=== PATIENT | male | born 1960 | race Caucasian/White ===

== ENCOUNTER 2019-12-28 02:19 | Outpatient (CLI) | payer BC, SELFPAY ==
[2019-12-28 17:03] LABS: SARS-CoV-2 RNA PCR Negative
== END 2019-12-28 02:20 | disposition home or self-care (01) ==
LOC: ANHCOVIDDT 02:20
PROVIDERS: PCP Family Medicine; Visit Provider Internal Medicine Gastroenterology
DX: Z01.812 Encounter for preprocedural laboratory examination (principal); Z20.828 Contact with and (suspected) exposure to other viral communicable diseases
CPT/HCPCS: 87635; C9803; U0003

== ENCOUNTER 2019-12-30 00:06 | Day surgery (SDC) | payer BC, SELFPAY ==
[2019-12-20 14:25] VITALS: BMI 31.4
[2019-12-30 07:14] VITALS: BP 161/81; PULSE 70; RESP 18; TEMP 36.8; O2SAT 99; BMI 30.5
[2019-12-30] MEDS: LACTATED RINGERS 1,000 ML 150 ML IV CONT (07:21)
--- NOTE | 2019-12-30 07:57 | WPDANESEPPF ---
Anes - Initial Pre Proc Eval Procedure: Operation Date: 12/30/19 08:00 Proposed Procedures p Screening Colonoscopy - Lito Kimbrough DO Date/Time: 12/30/19 07:57 Surgeon: Lito Kimbrough DO Pre Op Diagnosis: Neoplam Screening Patient Data Age: 59 Gender: M Height: 1.83 m Weight: 102.2 kg Last Vital Signs Temp 36.8 C 12/30/19 07:14 Pulse 70 12/30/19 07:14 Resp 18 12/30/19 07:14 BP 161/81 H 12/30/19 07:14 Pulse Ox 99 12/30/19 07:14 Allergies Allergy/AdvReac Type Severity Reaction Status Date / Time omeprazole Allergy Unknown Rash Verified 12/30/19 07:12 Home Medications Medication Instructions Recorded Confirmed Type No Home Medications 12/20/19 12/30/19 History Patient hx anesthesia problems: none Family hx anesthesia problems: none [facility] Past Medical History Medical History (Updated 12/30/19 @ 07:58 by Geoffrey Carbone MD) Obesity Social History Social History Smoking status: Never smoker Second hand tobacco smoke exposure: No Alcohol intake: current Substance use type: does not use Living arrangements: with family Anes - Eval Final PreProcedure Day of Procedure 12/30/19 07:57 Patient weight: obese Heart: regular rate and rhythm Lungs: clear to auscultation and normal air movement Airway: Mallampati scale class II Neurological: alert and oriented Last oral intake: >/= 8 hours ASA classification: II Emergent: no Anesthetic plan: proceed Anesthesia type and monitoring: general GIVS Informed Consent: The patient's anesthetic plan and its attendant risks and benefits were discussed with the patient/family/POA. Questions were solicited and answers provided to the satisfaction of the patient/family/POA.
--- NOTE | 2019-12-30 08:10 | PM.IMHP ---
H&P: HPI History of Present Illness Date/Time: 12/30/19 08:10 Chief complaint: Neoplam Screening Narrative: Reason for visit colonoscopy. This very pleasant gentleman seen in consultation at request of the primary physician. Impression: Screening and surveillance colonoscopy. The patient's history adenomatous colon polyps. Diverticulosis coli. Obesity. Recommendation: Colonoscopy. History: Very pleasant gentleman has negative GI review systems. He has a history of diverticulosis coli and multiple adenomatous colon polyps. He is here for screening and surveillance. Physical examination: General: very pleasant patient in no acute distress. HEENT: Head was normocephalic sclerae is clear mouth without masses neck was supple. Heart: Rate rhythm regular without S3 or S4. Lungs: CTA. Abdomen: Soft with no guarding or rigidity. Bowel sounds were active. Neurologic: Cranial nerves 2 through 12 intact. No focal defects. No clonus. Musculoskeletal system: Revealed no joint tenderness or swelling no muscle atrophy. Extremities: Reveal no significant edema. Skin: Warm and dry with normal turgor. Mental status: intact. Patient is alert and oriented. Review of Systems Review of Systems: All systems reviewed & are unremarkable except as noted in HPI and below PMFSH Past Medical History Medical History (Updated 12/30/19 @ 08:09 by Lito Kimbrough DO) Adenomatous colon polyp Diverticula, colon Obesity Surgical History Surgical History (Updated 12/30/19 @ 08:10 by Lito Kimbrough DO) Hx of colonoscopy Social History Social History Smoking status: Never smoker Second hand tobacco smoke exposure: No Alcohol intake: current Substance use type: does not use Living arrangements: with family Meds Home Medications and Allergies Home Medications Medication Instructions Recorded Confirmed Type No Home Medications 12/20/19 12/30/19 History Allergies Allergy/AdvReac Type Severity Reaction Status Date / Time omeprazole Allergy Unknown Rash Verified 12/30/19 07:12 Vital Signs Vital Signs - 24 hr 12/30/19 07:14 Temperature 36.8 C Pulse Rate 70 Respiratory Rate 18 Blood Pressure 161/81 H Pulse Oximetry 99
[2019-12-30 08:36] VITALS: BP 103/67; PULSE 65; RESP 20; O2SAT 100
[2019-12-30 08:46] VITALS: BP 108/63; PULSE 70; RESP 18; O2SAT 99
[2019-12-30 08:56] VITALS: BP 119/82; PULSE 66; RESP 20; O2SAT 100
== END 2019-12-30 09:09 | disposition home or self-care (01) ==
PROVIDERS: PCP Family Medicine; Visit Provider Internal Medicine Gastroenterology
PROC: 0DJD8ZZ Inspection of Lower Intestinal Tract, Via Natural or Artificial Opening Endoscopic (ICD-10-PCS; CPT 45378; principal; 2019-12-30 08:00)
DX: Z12.11 Encounter for screening for malignant neoplasm of colon (principal); D12.3 Benign neoplasm of transverse colon; D12.4 Benign neoplasm of descending colon; K57.30 Diverticulosis of large intestine without perforation or abscess without bleeding; K64.8 Other hemorrhoids; E66.9 Obesity, unspecified; Z68.30 Body mass index [BMI] 30.0-30.9, adult
CPT/HCPCS: 45380; 88305; J2704; J7120

== ENCOUNTER 2021-11-21 16:01 | Outpatient (CLI) | payer BC, SELFPAY ==
--- NOTE | ~2021-11-21 | XR_ITS ---
XR cervical spine 4-5V DATE: 11/21/2021 16:23 INDICATION: Cervical radiculopathy, with pain radiating to right arm TECHNIQUE: AP, open-mouth, lateral and swimmer views COMPARISON: 12/29/2017 cervical spine FINDINGS: There is mild levoscoliosis of the cervical and upper thoracic spine. Osteopenia. C1 and C2 are normally aligned and the odontoid process is intact. No fracture or dislocation or locked facet or prevertebral soft tissue swelling. There is anterior and interbody spinal fusion at C6-7. Mild degenerative disease at C5-6. Minimal degenerative disc disease at C4-5. IMPRESSION: Mild cervicothoracic levoscoliosis Osteopenia Status post anterior and interbody spinal fusion at C6-7 Minimal degenerative disc disease at C4-5, mild degenerative disc disease at C5-6 Reviewed, dictated and finalized at location B. IMPRESSION: Mild cervicothoracic levoscoliosis Osteopenia Status post anterior and interbody spinal fusion at C6-7 Minimal degenerative disc disease at C4-5, mild degenerative disc disease at C5 -6
== END 2021-11-21 16:02 | disposition home or self-care (01) ==
PROVIDERS: PCP Family Medicine; Visit Provider Family Medicine
DX: M54.12 Radiculopathy, cervical region (principal); M85.88 Other specified disorders of bone density and structure, other site; Z98.1 Arthrodesis status; M50.322 Other cervical disc degeneration at C5-C6 level
CPT/HCPCS: 72050

== ENCOUNTER → 2023-05-23 07:52 | Outpatient (CLI) | payer BC, SELFPAY ==
--- NOTE | ~2023-05-23 | XR_ITS ---
XR chest 2V DATE: 05/23/2023 08:36 INDICATION: Cough for 3 weeks. History of hypertension. Nonsmoker. TECHNIQUE: PA and lateral views COMPARISON: None FINDINGS: Normal heart size. No hilar or mediastinal enlargement. Mild discoid atelectasis is suggested in the right posterior lung base. No pulmonary infiltrate or co nsolidation, pleural effusion or pulmonary vascular congestion or pneumothorax is detected. Status post anterior lower cervical spine surgical fusion. Degenerative spurring of the thoracic and lumbar spine. IMPRESSION: Mild discoid atelectasis at posterior right lung base; otherwise no active cardiopulmonar y disease Reviewed, dictated and finalized at location B. TIONAL SUPPORT ANALYST IMPRESSION: Mild discoid atelectasis at posterior right lung base; otherwise no active cardiopulmonary disease
== END ==
PROVIDERS: PCP Family Medicine; Visit Provider Nurse Practitioner Family
DX: R05.9 Cough, unspecified (principal); J98.11 Atelectasis
CPT/HCPCS: 71046

== ENCOUNTER 2023-06-17 02:20 | Day surgery (SDC) | payer BC, SELFPAY ==
[2023-05-22 13:19] VITALS: BMI 31.6
--- NOTE | 2023-06-13 12:54 | SUR.PREOP ---
Patient called regarding upcoming procedure. Reviewed preop instructions, appointment times, and procedure prep.
--- NOTE | 2023-06-16 14:48 | PM.HPGS ---
History of Present Illness History of Present Illness Consent: Risks, benefits, and alternatives have been discussed and questions answered. Patient agrees to proceed with procedure. Chief complaint: hx colon polyps Narrative: Immanuel Leonard is a 63 year old male Referred for colon cancer screening. In 2017 he had multiple polyps removed. He had a couple of more polyps in 2018, And again in 2019. Review of Systems Review of Systems: All systems reviewed & are unremarkable except as noted in HPI and below PMFSH Past Medical History Medical History Adenomatous colon polyp Diverticula, colon Dyslipidemia Essential (primary) hypertension Obesity Vitamin D deficiency Surgical History Surgical History H/O melanoma excision (~2021) left anterior lower leg History of fusion of cervical spine (~07/2006) C6-7 diskectomy Hx of colonoscopy Social History Social History Smoking status: Never smoker Second hand tobacco smoke exposure: No Alcohol intake: former Substance use type: does not use Lack of Transportation: No Lack of Food: Never True Current Housing: I Have Housing Concerned About Future Housing: No Difficulty Paying Gas/Electric Bills: No Difficulty Paying for Meds: No Currently Unemployed: No Education: High School Diploma/GED Difficulty w/ Childcare or Family Care: No Living arrangements: with family Additional living arrangements comments: lives with Gender identity (if verbalized by the patient): Male Sexual Orientation (if Verbalized by the Patient): Straight or Heterosexual Spiritual care concerns: No Meds Home Medications and Allergies Home Medications Medication Instructions Recorded Confirmed Type cholecalciferol (vitamin D3) 50 50 mcg PO DAILY #1 cap 07/11/22 06/17/23 Rx mcg (2,000 unit) capsule terbinafine HCl 250 mg tablet 250 mg PO DAILY 03/31/23 06/17/23 History atorvastatin 10 mg tablet (Lipitor) 10 mg PO QHS #90 tabs 04/03/23 06/17/23 Rx losartan 50 mg tablet 50 mg PO DAILY #90 tabs 05/26/23 06/17/23 Rx Allergies Allergy/AdvReac Type Severity Reaction Status Date / Time omeprazole Allergy Unknown Rash Verified 06/17/23 08:36 amlodipine AdvReac Mild pedal edema Verified 06/17/23 08:36 Exam Resp: Auscultation: clear to auscultation bilaterally Cardio: Rate: regular rate Rhythm: regular rhythm GI: GI Palp: Yes Soft to palpation and No Tenderness to palpation present (GI) Assessment and Plan Assessment and plan (1) Colon cancer screening: Code(s): Z12.11 - Encounter for screening for malignant neoplasm of colon Status: Acute Assessment and Plan: Colonoscopy with possible biopsy or polypectomy or cautery or injection of substances.
[2023-06-17 08:37] VITALS: BP 166/83; PULSE 65; RESP 18; TEMP 36.3; O2SAT 99
[2023-06-17] MEDS: LACTATED RINGERS 1,000 ML 150 ML IV CONT (08:40)
--- NOTE | 2023-06-17 08:56 | WPDANESEPPF ---
Anes - Initial Pre Proc Eval Procedure: Operation Date: 06/17/23 10:00 Proposed Procedures p Colonoscopy - Deyvi Schumacher MD Date/Time: 06/17/23 08:56 Surgeon: Deyvi Schumacher MD Pre Op Diagnosis: hx colon polyps Patient Data Age: 63 Gender: M Height: 1.83 m Weight: 105.5 kg Last Vital Signs Temp 36.3 C L 06/17/23 08:37 Pulse 65 06/17/23 08:37 Resp 18 06/17/23 08:37 BP 166/83 H 06/17/23 08:37 Pulse Ox 99 06/17/23 08:37 O2 Del Method Room Air 06/17/23 08:37 Allergies Allergy/AdvReac Type Severity Reaction Status Date / Time omeprazole Allergy Unknown Rash Verified 06/17/23 08:36 amlodipine AdvReac Mild pedal edema Verified 06/17/23 08:36 Home Medications Medication Instructions Recorded Confirmed Type cholecalciferol (vitamin D3) 50 50 mcg PO DAILY #1 cap 07/11/22 06/17/23 Rx mcg (2,000 unit) capsule terbinafine HCl 250 mg tablet 250 mg PO DAILY 03/31/23 06/17/23 History atorvastatin 10 mg tablet (Lipitor) 10 mg PO QHS #90 tabs 04/03/23 06/17/23 Rx losartan 50 mg tablet 50 mg PO DAILY #90 tabs 05/26/23 06/17/23 Rx Patient hx anesthesia problems: none Family hx anesthesia problems: none Results Review: All pre-operative results and documents have been reviewed as part of the pre-operative evaluation. [facility] [place] Past Medical History Medical History Adenomatous colon polyp Diverticula, colon Dyslipidemia Essential (primary) hypertension Obesity Vitamin D deficiency Surgical History Surgical History H/O melanoma excision (~2021) left anterior lower leg History of fusion of cervical spine (~07/2006) C6-7 diskectomy Hx of colonoscopy Social History Social History Smoking status: Never smoker Second hand tobacco smoke exposure: No Alcohol intake: former Substance use type: does not use Lack of Transportation: No Lack of Food: Never True Current Housing: I Have Housing Concerned About Future Housing: No Difficulty Paying Gas/Electric Bills: No Difficulty Paying for Meds: No Currently Unemployed: No Education: High School Diploma/GED Difficulty w/ Childcare or Family Care: No Living arrangements: with family Additional living arrangements comments: lives with Gender identity (if verbalized by the patient): Male Sexual Orientation (if Verbalized by the Patient): Straight or Heterosexual Spiritual care concerns: No Anes - Eval Final PreProcedure Day of Procedure 06/17/23 08:56 Patient weight: obese Heart: regular rate and rhythm Lungs: clear to auscultation Airway: Mallampati scale class II Neurological: alert and oriented Last oral intake: >/= 8 hours ASA classification: III Emergent: no Anesthetic plan: proceed Anesthesia type and monitoring: general GIVS and standard monitoring Results Review: All pre-operative results and documents have been reviewed as part of the pre-operative evaluation. Informed Consent: The patient's anesthetic plan and its attendant risks and benefits were discussed with the patient/family/POA. Questions were solicited and answers provided to the satisfaction of the patient/family/POA.
[2023-06-17 09:56] VITALS: BP 130/79; PULSE 67; RESP 18; O2SAT 98
[2023-06-17 10:06] VITALS: BP 120/73; PULSE 64; RESP 18; O2SAT 100
[2023-06-17 10:16] VITALS: BP 159/89; PULSE 60; RESP 18; O2SAT 99
== END 2023-06-17 10:20 | disposition home or self-care (01) ==
PROVIDERS: PCP Family Medicine; Visit Provider Internal Medicine Gastroenterology
PROC: 0DJD8ZZ Inspection of Lower Intestinal Tract, Via Natural or Artificial Opening Endoscopic (ICD-10-PCS; CPT 45378; principal; 2023-06-17 10:00)
DX: Z12.11 Encounter for screening for malignant neoplasm of colon (principal); Z86.010 Personal history of colon polyps; K57.30 Diverticulosis of large intestine without perforation or abscess without bleeding; I10 Essential (primary) hypertension; E78.5 Hyperlipidemia, unspecified; E66.9 Obesity, unspecified; Z68.31 Body mass index [BMI] 31.0-31.9, adult; E55.9 Vitamin D deficiency, unspecified
CPT/HCPCS: 45378; J2704; J7120

== ENCOUNTER 2023-09-23 08:23 | Outpatient (CLI) | payer BC, SELFPAY ==
[2023-09-23 13:35] LABS: Alanine Aminotransferase 45 U/L (6-50); Albumin Level 4.2 g/dL (3.5-5.1); Alkaline Phosphatase 86 U/L (38-126); Anion Gap 4 mmol/L (4-12); Aspartate Amino Transferase 66 U/L (17-59); Bilirubin,Total 0.8 mg/dL (0.2-1.3); Blood Urea Nitrogen 16 mg/dL (9-20); Calcium 9.8 mg/dL (8.4-10.2); Carbon Dioxide 29 mmol/L (22-30); Chloride 106 mmol/L (98-107); Cholesterol 150 mg/dL (0-200); Estimated Glomerular Filt Rate > 60; Glucose 97 mg/dL (65-110); HDL Direct 36 mg/dL; Potassium 4.9 mmol/L (3.4-5.0); Sodium 139 mmol/L (137-145); Triglycerides 171 mg/dL (<150)
[2023-09-23 13:46] LABS: LDL Cholesterol Direct 93 mg/dL
== END 2023-09-23 08:24 | disposition home or self-care (01) ==
LOC: ANHGOSHLAB 08:24
PROVIDERS: PCP Family Medicine; Visit Provider Student in an Organized Health Care Education/Training Program
DX: E78.5 Hyperlipidemia, unspecified (principal)
CPT/HCPCS: 36415; 80053; 80061

== ENCOUNTER 2023-10-16 11:40 | Emergency (ER) | payer BC, SELFPAY ==
--- NOTE | ~2023-10-16 | CT_ITS ---
EXAMINATION: CT cervical spine wo con DATE: 10/16/2023 13:42 INDICATION: 12 foot fall with head injury TECHNIQUE: Computed tomography (CT) of the cervical spine was performed without intravenous contrast. Axial dose Ez The dose-length product was 630.82 mGy-cm. COMPARISON: Radiographs dated 11/21/2021 FINDINGS: Minimal cervicothoracic levocurvature. Sagittal alignment is normal. C6-C7 anterior spinal fusion wit h anterior plate and screw fixation. Vertebral body heights are normal. No fracture. Mild disc height loss at C5-C6. Disc bulges resulting in mild central canal stenosis at C4-C5, C5-C6 and C7-T1. There is multilevel mild bilateral cervical facet osteoarthritis. There is moderate bilateral uncovertebra l osteoarthritis at C5-C6 with mild uncovertebral osteoarthritis throughout the remainder of the cerv ical spine. This contributes to multilevel bilateral minimal to mild neural foraminal stenosis. Visua lized apices of the lungs are clear. Small amount of atherosclerotic calcification is at the bilatera l carotid bulbs. Cervical soft tissues are otherwise unremarkable. IMPRESSION: 1. Mild cervical spondylosis with change of prior instrumented C5-C6 anterior spinal fusion. No acute osseous abnormality. Reviewed, dictated and finalized at location B. IMPRESSION: 1. Mild cervical spondylosis with change of prior instrumented C5-C6 anterior s hakan fusion. No acute osseous abnormality.
--- NOTE | ~2023-10-16 | CT_ITS ---
EXAMINATION: CT chst ab pel thor lum w DATE: 10/16/2023 13:42 INDICATION: 12 foot fall with head injury TECHNIQUE: Computed tomography (CT) of the chest, abdomen, pelvis as well as of the thoracic and lumb ar spine was performed with 100 mL Omnipaque-350 intravenous contrast. Automated exposure control and iterative reconstruction technique were employed. The dose-length product was 1423.81 mGy-cm. COMPARISON: None FINDINGS: CHEST CT: Minimal dependent atelectasis in the bilateral lower lobes. Calcified right lower lobe nodule, calcif ied right hilar lymph nodes and splenic calcification, all consistent with old granulomatous disease. No pneumonia, pulmonary edema or other pulmonary infiltrates. Heart size is normal. Atherosclerotic coronary artery calcific lesion. No pericardial effusion. Thoracic aorta is normal in caliber with no dissection or acute traumatic aortic injury. No pathologically enlarged thoracic lymphadenopathy. ABDOMEN/PELVIS CT: Couple small left hepatic cysts the larger measuring 1 cm. Gallbladder, pancreas and bilateral adrena l glands are normal. 1.4 cm splenic cyst. Bilateral nonobstructing nephrolithiasis with a couple 2 mm stones in middle calyces of both kidneys. There is moderate colonic diverticulosis with a sigmoid an d descending colon predominance without adjacent inflammatory change to suggest diverticulitis. Small bowel and appendix are normal. Small fat-containing umbilical hernia with underlying hernia mesh rep air. Large left inguinal hernia containing fat and a fluid-filled portion of the bladder. Prostatomeg kalina measuring 6.1 x 5.4 cm. No free intraperitoneal gas or fluid. No pathologically enlarged abdomina l or pelvic lymphadenopathy. THORACIC SPINE CT: Anterior plate and screw fixation at C6-C7. 17 degree midthoracic dextro scoliosis and 9 degrees lowe r thoracic levocurvature. Sagittal alignment is normal. Chronic likely physiologic mild anterior wedg ing at T11 and T12. Remaining vertebral body heights are normal with a few Schmorl's nodes scattered throughout the mid and lower thoracic spine. No acute fracture. There is moderate to severe facet ost eoarthritis with associated moderate neural foraminal stenosis on the right at T2-T3 and T3-T4. There is additional multilevel bilateral mild facet osteoarthritis throughout the thoracic spine with mini mal to mild neural from stenosis at a few additional levels in the thoracic spine. There is multileve l mild to moderate disc height loss with some scattered degenerative endplate osteophytes most promin ent at the thoracic spine. No thoracic central canal stenosis. LUMBAR SPINE CT: 9 degrees lumbar levocurvature. Vertebral body heights are normal. No acute fracture. Minimal multile ignacio disc height loss with mild disc bulges at L2-L3 through L5-S1 with only negligible associated liset tral canal stenosis. Multilevel mild to moderate thoracic facet osteoarthritis. This contributes to m ultilevel mild to moderate lumbar neural foraminal stenosis most prominent on the left at L5-S1. IMPRESSION: 1. No acute osseous abnormality or acute vascular or visceral organ injury in the chest, abdomen or p keith. 2. Mild to moderate thoracic and mild lumbar spondylosis. 3. Bilateral nonobstructing nephrolithiasis. 4. Large left inguinal hernia containing fat and a significant portion of the bladder. 5. Prior mesh repair of a small fat-containing umbilical hernia. 6. Prostatomegaly. Reviewed, dictated and finalized at location B. IMPRESSION: 1. No acute osseous abnormality or acute vascular or visceral organ injury in t he chest, abdomen or pelvis. 2. Mild to moderate thoracic and mild lumbar spondylosis. 3. Bilateral nonobstructing nephrolithiasis. 4. Large left inguinal hernia containing fat and a significant port
--- NOTE | ~2023-10-16 | CT_ITS ---
CT brain wo con Ordering provider: Preet Bustamante MD History: 63 years Male with . trauma . Comparison: None. Technique: CT of the head without contrast. Radiation reduction technique utilized. DLP is 681 mGy. FINDINGS: BRAIN PARENCHYMA AND CSF SPACES: No midline shift, mass effect or hemorrhage. The brain parenchyma a nd CSF spaces are otherwise normal. VISUALIZED PARANASAL SINUSES: Well aerated. MASTOIDS: Well aerated. BONES: The bones appear intact. SOFT TISSUES: Right occipital scalp hematoma otherwise, Visualized nasopharynx is normal. Superficial soft tissues are normal. IMPRESSION: No acute intracranial findings. Reviewed, dictated and finalized at location A.
[2023-10-16 11:47] VITALS: BP 187/87; PULSE 74; RESP 12; TEMP 36.7; O2SAT 97
--- NOTE | 2023-10-16 12:13 | ED.GENADULT ---
HPI - General Adult General Chief complaint: Trauma Stated complaint: fell 12ft to ground through scafolding Time Seen by Provider: 10/16/23 11:46 History of Present Illness HPI narrative: 63-year-old male present to the emergency department for evaluation after having a fall from scaffolding. Patient states he was working approximately 12 ft of height when the scaffolding gave way and he fell to the 2nd level of the scaffolding which then gave way causing him to fall to the ground. Patient did strike his head but denies loss consciousness. Patient complains right shoulder pain back pain abdominal pain and multiple abrasions. Patient is not on blood thinners. Related Data Allergies Allergy/AdvReac Type Severity Reaction Status Date / Time omeprazole Allergy Unknown Rash Verified 09/26/23 09:48 amlodipine AdvReac Mild pedal edema Verified 09/26/23 09:48 Review of Systems Review of Systems: All systems reviewed & are unremarkable except as noted in HPI and below PMFSH Past Medical History Medical History (Updated 10/17/23 @ 00:01 by Yaw De Santiago) Adenomatous colon polyp Cervical radicular pain Colon cancer screening Daytime somnolence Diverticula, colon Dyslipidemia Effusion of left knee Essential (primary) hypertension Neck pain Obesity Onychomycosis of toenail Poison esau dermatitis URI, acute Vitamin D deficiency Surgical History Surgical History (Updated 09/26/23 @ 10:01 by Kelsi Argueta CMA) H/O melanoma excision (~2021) left anterior lower leg History of fusion of cervical spine (~07/2006) C6-7 diskectomy History of umbilical hernia repair with mesh 10-15 years ago Hx of colonoscopy Social History Social History Smoking status: Never smoker Second hand tobacco smoke exposure: No Alcohol intake: former Substance use type: does not use Lack of Transportation: No Lack of Food: Never True Current Housing: I Have Housing Concerned About Future Housing: No Difficulty Paying Gas/Electric Bills: No Difficulty Paying for Meds: No Currently Unemployed: No Education: High School Diploma/GED Difficulty w/ Childcare or Family Care: No Living arrangements: with family Additional living arrangements comments: lives with Gender identity (if verbalized by the patient): Male Sexual Orientation (if Verbalized by the Patient): Straight or Heterosexual Spiritual care concerns: No Exam Narrative: APPEARANCE: Well appearing, no pain, no distress, well-nourished. HEAD: normocephalic, atraumatic. EYES: PERRLA/EOMI, conjunctivae clear. NOSE: Normal no drainage EARS:TMS clear with good light reflex. THROAT: Pharynx clear, no exudate. NECK: Supple. No adenopathy, no masses. RESPIRATORY: Airway patent, respirations nonlabored. Clear to auscultation bilaterally, no rales, rhonchi, wheezing. CARDIOVASCULAR: Regular rate and rhythm without murmurs rubs or gallops. ABDOMINAL: Soft, nontender, nondistended, normal bowel sounds MUSCULOSKELETAL: Moves all extremities. Strength/ROM intact, No edema, No calf tenderness. NEURO: Alert. Cranial nerves II through XII intact. SKIN: Abrasions Course Course Emergency Course: Patient had no acute fractures , patient was updated on results and was discharged home. Vital Signs Vital signs: Vital Signs Temperature 98.1 F 10/16/23 11:47 Pulse Rate 74 10/16/23 11:47 Respiratory Rate 12 10/16/23 11:47 Blood Pressure 187/87 H 10/16/23 11:47 Pulse Oximetry 97 10/16/23 11:47 Oxygen Delivery Room Air 10/16/23 11:47 Temperature 98.1 F 10/16/23 11:47 Pulse Rate 72 10/16/23 16:13 Respiratory Rate 27 H 10/16/23 16:13 Blood Pressure 109/62 10/16/23 16:13 Pulse Oximetry 98 10/16/23 16:13 Oxygen Delivery Room Air 10/16/23 11:47 Medical Decision Making [facility] Narrative Medical decision making narrative: 63-year-old male presents [facility]
[2023-10-16 12:37] VITALS: PULSE 69
[2023-10-16 12:40] LABS: Basophils Percent Auto 0.3 % (0.2-1.2); Eosinophils Absolute Auto 0.1 K/mm3 (0-0.3); Eosinophils Percent Auto 0.5 % (0-4.4); Hematocrit 42.7 % (42.0-52.0); Immature Granulocyte Absolute 0.06 K/mm3 (0.00-0.031); Immature Granulocyte Percent A 0.4 % (0-0.5); Lymphocytes Absolute Auto 1.73 K/mm3 (0.9-3.2); Lymphocytes Percent Auto 12.7 % (18.3-44.2); Mean Corpuscular HGB Conc 35.1 g/dl (32-36); Mean Corpuscular Hemoglobin 32.6 pg (26-34); Mean Corpuscular Volume 92.8 fl (80-100); Mean Platelet Volume 9.5 fl (7.4-10.4); Monocytes Absolute Auto 0.8 K/mm3 (0.1-0.6); Neutrophils Absolute Auto 10.9 K/mm3 (1.3-6.7); Neutrophils Percent Auto 80.1 % (45.5-73.1); Platelet Count Result 192 k/mm3 (150-375); Red Cell Distribution Width 12.6 % (11.5-14.5); White Blood Count 13.6 K/mm3 (4.5-10.0)
[2023-10-16 12:51] LABS: Alanine Aminotransferase 50 U/L (6-50); Albumin Level 4.2 g/dL (3.5-5.1); Alkaline Phosphatase 89 U/L (38-126); Anion Gap 5 mmol/L (4-12); Aspartate Amino Transferase 37 U/L (17-59); Bilirubin,Total 0.6 mg/dL (0.2-1.3); Blood Urea Nitrogen 17 mg/dL (9-20); Calcium 9.9 mg/dL (8.4-10.2); Carbon Dioxide 27 mmol/L (22-30); Chloride 105 mmol/L (98-107); Estimated CRCL calculation 93 ml/min; Estimated Glomerular Filt Rate > 60; Glucose 106 mg/dL (65-110); Potassium 4.4 mmol/L (3.4-5.0); Sodium 137 mmol/L (137-145)
[2023-10-16 12:52] LABS: Partial Thromboplastin Time 27.3 Seconds (22.3-36.8); Prothrombin Time 13.4 Seconds (11.1-14.7)
--- NOTE | 2023-10-16 14:02 | PC.NURSE ---
Pt unable to urinate at this time. refuses cath
[2023-10-16 14:04] VITALS: BP 137/63; PULSE 66; RESP 16; O2SAT 100
[2023-10-16 16:13] VITALS: BP 109/62; PULSE 72; RESP 27; O2SAT 98
== END 2023-10-16 16:23 | disposition home or self-care (01) ==
PROVIDERS: Emergency Provider Emergency Medicine; PCP Family Medicine
DX: S09.90XA Unspecified injury of head, initial encounter (principal); M54.9 Dorsalgia, unspecified; T14.8XXA Other injury of unspecified body region, initial encounter; I10 Essential (primary) hypertension; E78.5 Hyperlipidemia, unspecified; E55.9 Vitamin D deficiency, unspecified; E66.9 Obesity, unspecified; Z68.31 Body mass index [BMI] 31.0-31.9, adult; Z98.1 Arthrodesis status; Z86.010 Personal history of colon polyps; Z85.820 Personal history of malignant melanoma of skin; M47.812 Spondylosis without myelopathy or radiculopathy, cervical region; M47.816 Spondylosis without myelopathy or radiculopathy, lumbar region; M47.814 Spondylosis without myelopathy or radiculopathy, thoracic region; N20.0 Calculus of kidney; K44.9 Diaphragmatic hernia without obstruction or gangrene; N40.0 Benign prostatic hyperplasia without lower urinary tract symptoms; W12.XXXA Fall on and from scaffolding, initial encounter
CPT/HCPCS: 36415; 70450; 71260; 72125; 72129; 72132; 74177; 80053; 85025; 85610; 85730; 99284; Q9967

== ENCOUNTER 2024-06-03 11:39 | Outpatient (CLI) | payer BC, SELFPAY ==
--- OUTSIDE RECORDS SUMMARY | 2024-06-03 11:43 | XMS_ITS | Clinical Summary ---
Author Organization [facility] Address [address] [place] [address] Care Team Providers Care Tape Sewing Machine Operator Name Role Phone Светлана Bishop MD Primary Care Provider Allergies Active Allergy Reactions Criticality Noted Date Comments Omeprazole Unknown 10/21/2016 Medications No known medications Active Problems No known active problems Surgical History Surgery Date Site/Laterality Comments SPINAL FUSION Family History Medical History Relation Name Comments Cancer Other Relation Name Status Comments Other Social History Tobacco Use Types Packs/Day Years Used Date Smoking Tobacco: Never Smokeless Tobacco: Never Personal Safety Answer Date Recorded Getting School Help Needed Not on file 07/05 Sex and Gender Information Value Date Recorded Sex Assigned at Not on file Legal Sex Male 9:17 AM CDT Gender Identity Not on file Sexual Orientation Not on file Occupation Industry Job Start Date Job End Date construction Not on file Not on file Not on file Obstetrics History Last Filed Vital Signs Vital Sign Reading Time Taken Comments Blood Pressure 166/78 05/31/2020 2:34 PM REGISTERED REPRESENTATIVE Pulse 63 05/31/2020 2:34 PM REGISTERED REPRESENTATIVE Temperature 36.7 C (98 F) 05/31/2020 2:34 PM REGISTERED REPRESENTATIVE Respiratory Rate - - Oxygen Saturation - - Inhaled Oxygen Concentration - - Weight 109.8 kg (242 lb) 05/31/2020 2:34 PM REGISTERED REPRESENTATIVE Height 182.9 cm (6') 05/31/2020 2:34 PM REGISTERED REPRESENTATIVE Body Mass Index 32.82 05/31/2020 2:34 PM REGISTERED REPRESENTATIVE Plan of Treatment Not on file Insurance [employer] Care Teams Tape Sewing Machine Operator Relationship Specialty Start Date End Date Светлана Bishop MD PCP - General Family Practice 01/14/19
--- OUTSIDE RECORDS SUMMARY | 2024-06-03 11:43 | XMS_ITS | Clinical Summary ---
Author Organization [facility] Address [address] [place] [address] Care Team Providers Care Cattle Knocker Name Role Phone Juan Wick MD Primary Care Provider [phone] Source Comments [facility],non-owned Affiliates and Associated Physician Practices is amultiple site organization consisting of ambulatory clinics and hospital sitesin [place], [place], [place]. This disclosure is being madepursuant to the Care Everywhere program and may not contain all information available regarding this patient. Last updated 18.[facility] Social History Tobacco Use Types Packs/Day Years Used Date Smoking Tobacco: Never Assessed Sex and Gender Information Value Date Recorded Sex Assigned at Not on file Gender Identity Not on file Sexual Orientation Not on file Plan of Treatment Health Maintenance Due Date Last Done Comments COLOGUARD (AGES 45-75) - COL ON CA SCREENING 1960 COLON MONITORING 1960 COLONOSCOPY - COLON CA SCREENING 1960 CT COLONOGRAPHY - COLON CA SCREENING 1960 Colorectal Cancer Screening 1960 FIT - COLON CA SCREENING 1960 FLEX SIG - COLON CA SCREENING 1960 LIPID TESTING 1960 HIV SCREENING 02/24/1975 HEPATITIS C SCREENING 02/20/1978 DTAP/TDAP/TD VACCINES (1 - Tdap) 02/24/1979 PNEUMOCOCCAL VACCINE 50+ (1 of 1 - PCV) 02/24/2010 ZOSTER VACCINE (1 of 2) 02/24/2010 COVID-19 VACCINE ( - 2023-2 5 season) 2023 INFLUENZA VACCINE (#1) 2023 DEPRESSION SCREENING 04/21/2024 Respiratory Syncytial Virus (RSV) Vaccine Pt: or over 60 yrs (1 - 1-dose 75+ series) 02/24/2035 HEPATITIS B VACCINE Aged Out No longe r eligible based on patient's age to complete this topic HIB VACCINE Aged Out No longer eligi ble based on patient's age to complete this topic HPV VACCINE Aged Out No longer eligi ble based on patient's age to complete this topic MENINGOCOCCAL (Group B) VACCINE Aged Out No longer eligible based on patient's age to complete this topic MENINGOCOCCAL VACCINE Aged Out No lizet sarita eligible based on patient's age to complete this topic PNEUMOCOCCAL VACCINE Aged Out No long er eligible based on patient's age to complete this topic Care Teams Cattle Knocker Relationship Specialty Start Date End Date Juan Wick MD [address] [place] [address] PCP - General 11/20/17
--- OUTSIDE RECORDS SUMMARY | 2024-06-03 11:43 | XMS_ITS | Patient Health Summary ---
Author Organization [facility] Address [address] [facility] [place] [address] Care Team Providers Care Credit Compliance Officer Name Role Phone Juan Wick MD Primary Care Provider [phone] Note from [facility],non-owned Affiliates and Associated Physician Practices is amultiple site organization consisting of ambulatory clinics and hospital sitesin [place], [place], [place] and [place]. This disclosure is being madepursuant to the Care Everywhere program and may not contain all information available regarding this patient. Last updated 18.[facility] Social History Tobacco Use Types Packs/Day Years Used Date Smoking Tobacco: Never Assessed Sex and Gender Information Value Date Recorded Sex Assigned at Not on file Gender Identity Not on file Sexual Orientation Not on file Procedures * DERMATOPATHOLOGY(Performed 12/15/2023) * DERMATOPATHOLOGY(Performed 11/27/2023) * DERMATOPATHOLOGY(Performed 07/30/2022) * DERMATOPATHOLOGY(Performed 06/06/2022) * DERMATOPATHOLOGY(Performed 01/21/2022) * DERMATOPATHOLOGY(Performed 01/01/2022) Results * DERMATOPATHOLOGY (12/15/2023 8:18 AM CDT) Only the most recent of6 resultswithin the time period is included. Case Report Dermatopathology Report Case: [id number] Authorizing Provider: Ana Aguilar MD Collected: 12/15/2023 08:18 AM Ordering Location: [facility] - Received: 12/15/2023 10:36 AM DermPath Lab Pathologist: Shira Avendano MD Specimen: Skin, left neck 1:01 PM CDT DERMATOPATHOLOGY LABORATORY Final Diagnosis Specimen A. SKIN, left neck: DERMAL SCAR RESIDUAL BASAL CELL CARCINOMA NOT IDENTIFIED (L90.5) 4 1:01 PM CDT DERMATOPATHOLOGY LABORATORY Clinical History BCC BX Proven 4 1:01 PM CDT DERMATOPATHOLOGY LABORATORY Gross Description Specimen A: Received is one formalin filled container labeled with the patient's name and designated left neck.The specimen consists of an ellipse measuring 23v45o2 mm and is oriented with the suture/notch at the 12 o'clock position labeled on the requisition. The 12 to 6 o'clock margin is inked green. The 6 o'clock to 12 o'clock margin is inked red. The 12 o'clock tip is submitted in cassette 1. The 6 o'clock tip is submitted in cassette 2. The remainder of the ellipse is serially sectioned and submitted in cassettes 3-5. Jar 0. 4 1:01 PM CDT DERMATOPATHOLOGY LABORATORY Microscopic Description Specimen A. SKIN, left neck: There are fibroblasts and collagen bundles oriented parallel to the skin surface. There are elongated blood vessels, some of which are oriented perpendicular to the skin surface. No basal cell carcinoma is identified. 4 1:01 PM CDT DERMATOPATHOLOGY LABORATORY Disclaimer An external and internal positive and negative controls are appropriate for the histochemical, immunohistochemical and immunofluorescence stain(s) in this case (if any), except where stated explicitly. The performance characteristics of the stain(s) cited in this report were developed and its performance characteristic determined by the Dermatopathology Laboratory at [facility], directed by Dr. Adele Velazco. These tests need not be, and therefore are not, approved by the [place] Food and Drug Administration. The tests are used for clinical purposes. Billing Codes Specimen Charges Stain Charges 56264 1 4 1:01 PM CDT DERMATOPATHOLOGY LABORATORY Embedded Images 4 1:01 PM CDT DERMATOPATHOLOGY LABORATORY Pathology/Cytolo gy TISSUE SPECIMEN FROM SKIN / Unknown 12/15/2023 8:18 AM CDT 12/15/2023 10:36 AM CDT Ana Aguilar MD LAB - PATHOLOGY/CYTO LOGY ORDERABLES DERMATOPATHOLOGY LABORATORY [facility] - Department of Dermatology [facility], [address]rd Floor [address] [phone] Care Teams Credit Compliance Officer Relationship Specialty Start Date End Date Juan Wick MD [address] [place] [address] PCP - General 11/20/17
--- OUTSIDE RECORDS SUMMARY | 2024-06-03 11:43 | XMS_ITS | Referral Summary ---
Author Organization [facility] Address [address] [place] [address] Care Team Providers Care Quahogger Name Role Phone Светлана Bishop MD Primary Care Provider Allergies Active Allergy Reactions Criticality Noted Date Comments Omeprazole Unknown 10/21/2016 Medications No known medications Active Problems No known active problems Social History Tobacco Use Types Packs/Day Years [...] file Not on file Not on file Last Filed Vital Signs Vital Sign Reading Time Taken Comments Blood Pressure 166/78 05/31/2020 2:34 PM SHANK PIECE TACKER Pulse 63 05/31/2020 2:34 PM SHANK PIECE TACKER Temperature 36.7 C (98 F) 05/31/2020 2:34 PM SHANK PIECE TACKER Respiratory Rate - - Oxygen Saturation - - Inhaled Oxygen Concentration - - Weight 109.8 kg (242 lb) 05/31/2020 2:34 PM SHANK PIECE TACKER Height 182.9 cm (6') 05/31/2020 2:34 PM SHANK PIECE TACKER Body Mass Index 32.82 05/31/2020 2:34 PM SHANK PIECE TACKER Plan of Treatment Not [place] [address] [employer] [address] [id number] Care Teams Quahogger Relationship Specialty Start Date End Date Светлана Bishop MD PCP - General Family Practice 01/14/19
--- OUTSIDE RECORDS SUMMARY | 2024-06-03 11:43 | XMS_ITS | Encounter Summary ---
Author Organization [facility] Address [address] [facility] [address] [facility] [place] [address] Care Team Providers Care Workers' Compensation Claims Supervisor Name Role Phone Juan Wick MD Primary Care Provider [phone] Encounter Details Date Type Department Care Team (Late st Contact Info) Description 12/15/2023 Lab Requisition [facility] - DermPath Lab [address] [facility] [place] [address] Ana Aguilar MD [address] [facility] [address] [place] [address] Social History Tobacco Use Types Packs/Day Years Used Date Smoking Tobacco: Never Assessed Sex and Gender Information Value Date Recorded Sex Assigned at Not on file Gender Identity Not on file Sexual Orientation Not on file documented as of this encounter Plan of Treatment Not on file documented as of this encounter Procedures Procedure Name Priority Date/Time Associated Diagnosis Comments DERMATOPATHOLOGY Routine 12/15/2023 8:18 AM CDT documented in this encounter Results * DERMATOPATHOLOGY (12/15/2023 8:18 AM CDT) Case Report Dermatopathology Report Case: [id number] Authorizing Provider: Ana Aguilar MD Collected: 12/15/2023 08:18 AM Ordering Location: [facility] - Received: 12/15/2023 10:36 AM DermPath Lab Pathologist: Shira Avendano MD Specimen: Skin, left neck 1:01 PM CDT DERMATOPATHOLOGY LABORATORY Final Diagnosis Specimen A. SKIN, left neck: DERMAL SCAR RESIDUAL BASAL CELL CARCINOMA NOT IDENTIFIED (L90.5) 1:01 PM CDT DERMATOPATHOLOGY LABORATORY Clinical History BCC BX Proven 4 1:01 PM T DERMATOPATHOLOGY LABORATORY Gross Description Specimen A: Received is one formalin filled container labeled with the patient's name and designated left neck.The specimen consists of an ellipse measuring 76f37h2 mm and is oriented with the suture/notch [...] cassettes 3-5. Jar 0. 4 1:01 PM T DERMATOPATHOLOGY LABORATORY Microscopic Description Specimen A. SKIN, left neck: There are fibroblasts and collagen bundles oriented parallel to the skin surface. There are elongated blood vessels, some of which are oriented perpendicular to the skin surface. No basal cell carcinoma is identified. 4 1:01 PM T DERMATOPATHOLOGY LABORATORY Disclaimer An external and internal positive and negative controls are appropriate for the histochemical, immunohistochemical and immunofluorescence stain(s) in this case (if any), except where stated explicitly. The performance characteristics of the stain(s) cited in this report were developed and its performance characteristic determined by the Dermatopathology Laboratory at [facility], directed by Dr. Adele Velazco. These tests need not be, and therefore are not, approved by the [place] Food and Drug Administration. The tests are used for clinical purposes. Billing Codes Specimen Charges Stain Charges 56995 1 4 1:01 PM CDT DERMATOPATHOLOGY LABORATORY Embedded Images 4 1:01 PM CDT DERMATOPATHOLOGY LABORATORY Pathology/Cytolo gy TISSUE SPECIMEN FROM SKIN / Unknown 12/15/2023 8:18 AM CDT 12/15/2023 10:36 AM CDT Ana Aguilar MD LAB - PATHOLOGY/CYTO LOGY ORDERABLES DERMATOPATHOLOGY LABORATORY [facility] - Department of Dermatology [address], [address] [place] [id number] [place] [address] documented in this encounter Visit Diagnoses Not on filedocumented in this encounter Care Teams Workers' Compensation Claims Supervisor Relationship Specialty Start Date End Date Juan Wick MD [address] [place] [address] PCP - General 11/20/17 documented as of this encounter
--- OUTSIDE RECORDS SUMMARY | 2024-06-03 11:43 | XMS_ITS | Clinical Summary ---
Author Organization [facility] Address [address] [place] [address] Phone Care Team Providers Care Entrepreneurship Program Director Name Role Phone Светлана Bishop MD Primary Care Provider Allergies Active Allergy Reactions Criticality Noted Date Comments Omeprazole Unknown 10/21/2016 Medications polyethylene glycol (MIRALAX) Powder Mix the entire bottle with 64 oz of a clear liquid. Use as directed by the office for colonoscopy prep. 255 g 0 7 Active polyethylene glycol (MIRALAX) Powder Please use entire 255 gram for colonoscopy prep as directed by office. 1 Bottle 8 Active Family History Medical History Relation Name Comments Cancer Father Brain Cancer Liver Cancer Father Lung Cancer Father Relation Name Status Comments Father Social History Tobacco Use Types Packs/Day Years Used Date Smoking Tobacco: Never Tobacco Cessation:Counseling Given: No Alcohol Use Standard Drinks/Week Comments Yes 0 (1 standard drink = 0.6 oz pur e alcohol) Occasional Sex and Gender Information Value Date Recorded Sex Assigned at Not on file Legal Sex Male 1:41 PM VICE PRESIDENT INTEGRATED Gender Identity Not on file Sexual Orientation Not on file Plan of Treatment Health Maintenance Due Date Last Done Comments Hepatitis C Virus (HCV) Screening 1960 TdaP Immunization 1960 Cologuard 02/24/2010 Immunochemical Fecal Occult Blood 02/24/2010 Pneumococcal Immunization (50+ years) (1 of 1 - PCV) 02/24/2010 Zoster Immunization (1 of 2) 02/24/2010 PSA Discussion 02/24/2015 Colonoscopy 12/29/2021 12/30/2019, 04/2017, 10/10/2016, Additional history exists Colorectal Cancer Screening 12/29/2021 Influenza Immunization (#1) 2023 SARS-COV-2 Immunization ( - 2023- season) 2023 Respiratory Syncytial Virus (RSV) Immunization (Adult) (1 - 1-dose 75+ series) 02/24/2035 12/30/2019, 04/2017, 10/10/2016, Additional history exists Hepatitis B Immunization Aged Out No longer eligible based on patient's age to complete this topic Meningococcal Immunization (ACWY) Aged Out No longer eligible based on patient's age to complete this topic Pneumococcal Immunization Combined Aged Out No longer eligible based on patient's age to complete this topic Rotavirus Immunization Aged Out No lo nger eligible based on patient's age to complete this topic Procedures Procedure Name Priority Date/Time Associated Diagnosis Comments COLONOSCOPY Routine 12/30/2019 from Last 3 Months or Most Recently Relevant to Health Maintenance Results * COLONOSCOPY (12/30/2019) Lito Kimbrough DO PROCEDURE/MINOR SURGICAL ORDERA BLES Final Result from Last 3 Months or Most Recently Relevant to Health Maintenance Insurance [facility] Care Teams Entrepreneurship Program Director Relationship Specialty Start Date End Date Светлана Bishop MD PCP - General Family Medicine 12/07/19
--- OUTSIDE RECORDS SUMMARY | 2024-06-03 11:43 | XMS_ITS | Encounter Summary ---
Author Organization [facility] Address [address] [facility] [place] [address] Care Team Providers Care Metal Grader Name Role Phone Juan Wick MD Primary Care Provider [phone] Encounter Details Date Type Department Care Team (Late st Contact Info) Description 11/27/2023 Lab Requisition [facility] - DermPath Lab [address] [facility] [place] [address] Ana Aguilar MD [address] [facility] 3 [place] [address] Social History Tobacco Use Types Packs/Day Years Used Date Smoking Tobacco: Never Assessed Sex and Gender Information Value Date Recorded Sex Assigned at Not on file Gender Identity Not on file Sexual Orientation Not on file documented as of this encounter Plan of Treatment Not on file documented as of this encounter Procedures Procedure Name Priority Date/Time Associated Diagnosis Comments DERMATOPATHOLOGY Routine 11/27/2023 8:33 AM CDT documented in this encounter Results * DERMATOPATHOLOGY (11/27/2023 8:33 AM CDT) Case Report Dermatopathology Report Case: [id number] Authorizing Provider: Ana Aguilar MD Collected: 11/27/2023 08:33 AM Ordering Location: [facility] - Received: 11/27/2023 12:15 PM DermPath Lab Pathologist: Bettye Avendano MD Specimen: Skin, left neck 12:19 PM CDT DERMATOPATHOLOGY LABORATORY Final Diagnosis Specimen A. SKIN, left neck: BASAL CELL CARCINOMA, NODULAR TYPE (C44.41) 12:19 PM CDT DERMATOPATHOLOGY LABORATORY Clinical History Ola Papule, R/O BCC, R/O SCC 12:19 PM CDT DERMATOPATHOLOGY LABORATORY Gross Description Specimen A: Received is one formalin filled container labeled with the patient's name and designated left neck. The specimen consists of a shave biopsy measuring 8x8x2 mm. Jar 0. 12:19 PM CDT DERMATOPATHOLOGY LABORATORY Microscopic Description Specimen A. SKIN, left neck: Within the dermis there are aggregates of basaloid cells with a high nuclear to cytoplasmic ratio and peripheral palisading. 12:19 PM CDT DERMATOPATHOLOGY LABORATORY Disclaimer An external and internal positive and negative controls are appropriate for the histochemical, immunohistochemical and immunofluorescence stain(s) in this case (if any), except where stated explicitly. The performance characteristics of the stain(s) cited in this report were developed and its performance characteristic determined by the Dermatopathology Laboratory at [facility], directed by Dr. Adele Velazco. These tests need not be, and therefore are not, approved by the [place] Food and Drug Administration. The tests are used for clinical purposes. Billing Codes Specimen Charges Stain Charges 34013 1 4 12:19 PM CDT DERMATOPATHOLOGY LABORATORY Embedded Images 12:19 PM CDT DERMATOPATHOLOGY LABORATORY Pathology/Cytolo gy TISSUE SPECIMEN FROM SKIN / Unknown 11/27/2023 8:33 AM CDT 11/27/2023 12:15 PM CDT Ana Aguilar MD LAB - PATHOLOGY/CYTO LOGY ORDERABLES DERMATOPATHOLOGY LABORATORY [facility] - Department of Dermatology [facility] Medicine [address] [place] [address], [address] [place] [address], [facility] [phone] documented in this encounter Visit Diagnoses Not on filedocumented in this encounter Care Teams Metal Grader Relationship Specialty Start Date End Date Juan Wick MD [address] [place] [address] PCP - General 11/20/17 documented as of this encounter
--- OUTSIDE RECORDS SUMMARY | 2024-06-03 11:43 | XMS_ITS | Referral Summary ---
Author Organization [facility] Address [address] [place] [address] Care Team Providers Care Second Rigger Name Role Phone Juan Wick MD Primary Care Provider [phone] Source Comments [facility],non-owned Affiliates and Associated Physician Practices is amultiple site organization consisting of ambulatory clinics and hospital sitesin [place], [place], [place] and [place]. This disclosure is being madepursuant to the Care Everywhere program and may not contain all information available regarding this patient. Last updated 18.[facility] [employer] Social History Tobacco Use Types Packs/Day Years Used Date Smoking Tobacco: Never Assessed Sex and Gender Information Value Date Recorded Sex Assigned at Not on file Gender Identity Not on file Sexual Orientation Not on file Plan of Treatment Not on file Care Teams Second Rigger Relationship Specialty Start Date End Date Juan Wick MD [address] [place] [address] PCP - General 11/20/17
--- OUTSIDE RECORDS SUMMARY | 2024-06-03 11:43 | XMS_ITS | Clinical Summary ---
Author Organization [facility] Address [address] [place] [address] Care Team Providers Care Curriculum And Instruction Specialist Name Role Phone Unavailable Primary Care Provider Unavailabl e Social History Tobacco Use Types Packs/Day Years Used Date Smoking Tobacco: Never Assessed Sex and Gender Information Value Date Recorded Sex Assigned at Not on file Legal Sex Male 7:02 PM CDT Gender Identity Not on file Sexual Orientation Not on file Plan of Treatment Health Maintenance Due Date Last Done Comments Colorectal Cancer Screening Colonoscopy (10 Years) 1960 Annual Physical 02/24/1963 Hepatitis C 02/24/1978 DTaP, Tdap and Td Vaccines ( 1 - Tdap) 02/24/1979 Zoster Vaccines (1 of 2) 02/24/2010 COVID-19 Vaccine ( - 2023-2 5 season) 2023 Influenza Adult (#1) 2024 RSV Immunization or 60+ Years (1 - 1-dose 75+ series) 02/24/2035 Meningococcal B Vaccine Aged Out No l onger eligible based on patient's age to complete this topic Meningococcal Vaccine Aged Out No lizet sarita eligible based on patient's age to complete this topic Pneumococcal Vaccine: Pediat rics (0 to 5 Years) and At-Risk Patients (6 to 64 Years) Aged Out No longer eligible b ased on patient's age to complete this topic RSV Immunizations Under 20 Months Aged Out No longer eligible based on patient's age to complete this topic
--- NOTE | 2024-06-03 15:26 | ECG_ITS ---
Test Date: 2024-06-03 15:45:38 Measurements Intervals [place] Rate: 59 P: 37 TN: 146 QRS: -26 QRSD: 109 T: 19 QT: 387 QTc: 385 Interpretive Statements SINUS BRADYCARDIA LEFT VENTRICULAR HYPERTROPHY BORDERLINE R WAVE PROGRESSION, ANTERIOR LEADS MINIMAL Q WAVES- HIGH LATERAL LEADS BASELINE ARTIFACT- I, II, AVR, AVL, AVF, V1-V2 BORDERLINE ECG No previous ECG available for comparison Electronically Signed On 06-03-2024 15:51:23 [employer]IN[employer] PREVENTION SOCIAL WORKER by Jacobo Lucero D.O.
== END 2024-06-03 11:40 | disposition home or self-care (01) ==
PROVIDERS: PCP Family Medicine; Visit Provider Surgery
DX: Z01.818 Encounter for other preprocedural examination (principal); I10 Essential (primary) hypertension; E78.5 Hyperlipidemia, unspecified; K40.30 Unilateral inguinal hernia, with obstruction, without gangrene, not specified as recurrent
CPT/HCPCS: 36415; 86850; 86900; 86901; 93005

== ENCOUNTER 2024-06-10 00:29 | Day surgery (SDC) | payer BC, SELFPAY ==
[2024-06-01 13:42] VITALS: BMI 31.2
--- NOTE | 2024-06-01 13:43 | PC.NURSE ---
Report to the Outpatient Waiting Room, entrance under the green pavilion located off [facility], at time _1000_ on date _[phone]_. Planned Procedure Time: _1200_.? Time changes happen often and if your time is changed the preop area will call you the afternoon before. - You and your visitor will be asked to self-screen and do not enter if you have any COVID symptoms. Please call surgeon if you need to reschedule. - A mask is optional within the hospital at this time. Patients may have clear liquids (water, carbonated beverages, clear teas, apple juice) until 3 hours prior to surgery with a maximum of 20 ounces. - No food from midnight until time of surgery and no smoking, or chewing tobacco (or any form of nicotine). No chewing gum, candy or mints. Take only the following medications with a SIP of water on the morning of surgery: ___None DO NOT STOP ANY OF YOUR OTHER PRESCRIPTION MEDICATIONS PRIOR TO SURGERY EXCEPT THE FOLLOWING Hold all vitamins and supplements for 3 days per anesthesiologist. Medications to discontinue per physician Date to take last dose Please no make-up, nail italian, hairspray, perfume, deodorant, or body powder the day of surgery.? No jewelry (including any body piercings) or valuables the day of surgery, leave them at home.? Please take a shower or bath the night before, or the morning of, surgery with an antibacterial soap.? Wear comfortable, loose fitting clothing.? - Jewelry must be removed prior to entering the operating room.? Rings and piercings that are not removed may be cut off. - The hospital will not accept responsibility for valuables.? - Please leave all valuables, including medications, at home the day of surgery. If you are going home after surgery, a licensed tractor trailer moving van driver must drive you home.? - NO public transportation without another adult if you receive anesthesia. - We recommend that an adult stay with you for 24 hours following discharge. - We also recommend that you do not drive, make important decision, drink alcoholic beverages, or take any drugs that were not prescribed by your health care provider for at least 24 hours after your discharge time. Follow any additional instructions given to you from your surgeon. Telephone instructions given to __Dilanfrancy__and asked if any additional questions and then verbalized understanding. Patient advised to call surgeon office or pre surgery nurse liaison [phone] if any additional questions.
[2024-06-10] VITALS (11 sets, daily range): BP systolic 114–172; BP diastolic 55–80; PULSE 61–84; RESP 14–18; TEMP 36.6; O2SAT 97–100
--- OUTSIDE RECORDS SUMMARY | 2024-06-10 00:31 | XMS_ITS | Patient Health Summary ---
Author Organization [facility] Address [address] [place] [address] Care Team Providers Care Industrial Workers Name Role Phone Juan Wick MD Primary Care Provider [phone] Note from [facility],non-owned Affiliates and Associated Physician Practices is amultiple site organization consisting of ambulatory clinics and hospital sitesin [place], [place], [place] and [place]. This disclosure is being madepursuant to the Care Everywhere program and may not contain all information available regarding this patient. Last updated 18.[facility] Social History Tobacco Use Types Packs/Day Years [...] is included. Case Report Dermatopathology Report Case: [id number] Authorizing Provider: Ana Aguilar MD Collected: 12/15/2023 08:18 AM Ordering Location: [facility] - Received: 12/15/2023 10:36 AM DermPath [...] neck.The specimen consists of an ellipse measuring [id number] mm and is oriented with the suture/notch [...] characteristic determined by the Dermatopathology Laboratory at [facility], directed by Dr. Adele Velazco. These tests need not be, and therefore are not, approved by the [place] Food and Drug Administration. The tests are used for clinical purposes. Billing Codes Specimen Charges Stain Charges 71431 1 4 1:01 PM CDT DERMATOPATHOLOGY LABORATORY Embedded Images 4 1:01 PM CDT DERMATOPATHOLOGY LABORATORY Pathology/Cytolo gy TISSUE SPECIMEN FROM SKIN / Unknown 12/15/2023 8:18 AM CDT 12/15/2023 10:36 AM CDT Ana Aguilar MD LAB - PATHOLOGY/CYTO LOGY ORDERABLES DERMATOPATHOLOGY LABORATORY [facility] - Department of Dermatology [facility] Special[facility], 3rd Floor [address] [phone] Care Teams Industrial Workers Relationship Specialty Start Date End Date Juan Wick MD [address] [place] [address] PCP - General 11/20/17
--- OUTSIDE RECORDS SUMMARY | 2024-06-10 00:31 | XMS_ITS | Clinical Summary ---
Author Organization [facility] Address [address] [place] [address] Phone Care Team Providers Care Window Shade Ring Sewer Name Role Phone Светлана Bishop MD Primary [...] on file Legal Sex Male 1:41 PM CRYSTAL GROWER Gender Identity Not on file Sexual Orientation [...] Most Recently Relevant to Health Maintenance Insurance [facility] Care Teams Window Shade Ring Sewer Relationship Specialty Start Date End Date Светлана Bishop MD PCP - General Family Medicine 12/07/19
--- OUTSIDE RECORDS SUMMARY | 2024-06-10 00:31 | XMS_ITS | Clinical Summary ---
Author Organization [facility] [employer] Address [address] [place] [address] Care Team Providers Care Print Color Matcher Name Role Phone Juan Wick MD Primary Care Provider Source Comments [facility] [employer],non-owned Affiliates and Associated Physician Practices is amultiple site organization consisting of ambulatory clinics and hospital sitesin [place], [place], [place] and [place]. This disclosure is being madepursuant to the Care Everywhere program and may not contain all information available regarding this patient. Last updated 18.[facility] [employer] Social History Tobacco Use Types Packs/Day Years [...] age to complete this topic Care Teams Print Color Matcher Relationship Specialty Start Date End Date Juan Wick MD [address] [place] [address] PCP - General 11/20/17
--- OUTSIDE RECORDS SUMMARY | 2024-06-10 00:31 | XMS_ITS | Clinical Summary ---
Author Organization [facility] Address [address] [place] [address] Care Team Providers Care Chuck Wagon Cook Name Role Phone Unavailable Primary Care Provider [...]
--- OUTSIDE RECORDS SUMMARY | 2024-06-10 00:31 | XMS_ITS | Referral Summary ---
Author Organization [facility] Address [address] [place] [address] Care Team Providers Care Military Science Instructor Name Role Phone Juan Wick MD Primary Care Provider [phone] Source Comments [facility],non-owned Affiliates and Associated Physician Practices is amultiple site organization consisting of ambulatory clinics and hospital sitesin [place], [place], [place] and [place]. This disclosure is being madepursuant to the Care Everywhere program and may not contain all information available regarding this patient. Last updated 18.[facility] [employer] Social History Tobacco Use Types Packs/Day Years Used Date Smoking Tobacco: Never Assessed Sex and Gender Information Value Date Recorded Sex Assigned at Not on file Gender Identity Not on file Sexual Orientation Not on file Plan of Treatment Not on file Care Teams Military Science Instructor Relationship Specialty Start Date End Date Juan Wick MD [address] [place] [address] PCP - General 11/20/17
--- OUTSIDE RECORDS SUMMARY | 2024-06-10 00:32 | XMS_ITS | Encounter Summary ---
Author Organization [facility] Address [address] [place] [address] Care Team Providers Care Branch Customer Service Representative Name Role Phone Juan Wick MD Primary Care Provider [phone] Encounter Details Date Type Department Care Team (Late st Contact Info) Description 12/15/2023 Lab Requisition [facility] - DermPath Lab [address], [place] [phone] Ana Aguilar MD [address] [facility] [address] [place] [address] Social History Tobacco Use Types Packs/Day Years [...] AM CDT) Case Report Dermatopathology Report Case: [id number] Authorizing Provider: Ana Aguilar MD Collected: 12/15/2023 08:18 AM Ordering Location: [facility] - Received: 12/15/2023 10:36 [...] neck.The specimen consists of an ellipse measuring [id number] mm and is oriented with the suture/notch [...] characteristic determined by the Dermatopathology Laboratory at [facility], directed by Dr. Adele Velazco. These tests need not be, and therefore are not, approved by the [place] Food and Drug Administration. The tests are used for clinical purposes. Billing Codes Specimen Charges Stain Charges [id number] 1 4 1:01 PM CDT DERMATOPATHOLOGY LABORATORY Embedded Images 4 1:01 PM CDT DERMATOPATHOLOGY LABORATORY Pathology/Cytolo gy TISSUE SPECIMEN FROM SKIN / Unknown 12/15/2023 8:18 AM CDT 12/15/2023 10:36 AM CDT Ana Aguilar MD LAB - PATHOLOGY/CYTO LOGY ORDERABLES DERMATOPATHOLOGY LABORATORY [facility] - Department of Dermatology [address], 3rd Floor [place] [phone] [place] [address] documented in this encounter Visit Diagnoses Not on filedocumented in this encounter Care Teams Branch Customer Service Representative Relationship Specialty Start Date End Date Juan Wick MD [address] [place] [phone] PCP - General 11/20/17 documented as of this encounter
--- OUTSIDE RECORDS SUMMARY | 2024-06-10 00:32 | XMS_ITS | Referral Summary ---
Author Organization [facility] Address [address] [place] [address] Care Team Providers Care Table Assembler Metal Name Role Phone Светлана Bishop MD Primary [...] Comments Blood Pressure 166/78 05/31/2020 2:34 PM POWDER COMPOUNDER Pulse 63 05/31/2020 2:34 PM POWDER COMPOUNDER Temperature 36.7 C (98 F) 05/31/2020 2:34 PM POWDER COMPOUNDER Respiratory Rate - - Oxygen Saturation - - Inhaled Oxygen Concentration - - Weight 109.8 kg (242 lb) 05/31/2020 2:34 PM POWDER COMPOUNDER Height 182.9 cm (6') 05/31/2020 2:34 PM POWDER COMPOUNDER Body Mass Index 32.82 05/31/2020 2:34 PM POWDER COMPOUNDER Plan of Treatment [place] [address] [employer] [id number] [id number] Care Teams Table Assembler Metal Relationship Specialty Start Date End Date Светлана Bishop MD PCP - General Family Practice 01/14/19
--- OUTSIDE RECORDS SUMMARY | 2024-06-10 00:32 | XMS_ITS | Clinical Summary ---
Author Organization [facility] Address [address] [place] [address] Care Team Providers Care Fisher Diving Name Role Phone Светлана Bishop MD Primary [...] Comments Blood Pressure 166/78 05/31/2020 2:34 PM GENERAL MILLING SUPERINTENDENT Pulse 63 05/31/2020 2:34 PM GENERAL MILLING SUPERINTENDENT Temperature 36.7 C (98 F) 05/31/2020 2:34 PM GENERAL MILLING SUPERINTENDENT Respiratory Rate - - Oxygen Saturation - - Inhaled Oxygen Concentration - - Weight 109.8 kg (242 lb) 05/31/2020 2:34 PM GENERAL MILLING SUPERINTENDENT Height 182.9 cm (6') 05/31/2020 2:34 PM GENERAL MILLING SUPERINTENDENT Body Mass Index 32.82 05/31/2020 2:34 PM GENERAL MILLING SUPERINTENDENT Plan of Treatment Not on file Insurance [employer] Care Teams Fisher Diving Relationship Specialty Start Date End Date Светлана Bishop MD PCP - General Family Practice 01/14/19
--- OUTSIDE RECORDS SUMMARY | 2024-06-10 00:32 | XMS_ITS | Encounter Summary ---
Author Organization [facility] Address [address] [place] [address] Care Team Providers Care Chemical Production Technician Name Role Phone Juan Wick MD Primary Care Provider [phone] Encounter Details Date Type Department Care Team (Late st Contact Info) Description 11/27/[address] [facility] - DermPath Lab [address] [place] [phone] Ana Aguilar MD [address] [facility] [address] [place] [address] Social History Tobacco Use Types Packs/Day Years [...] AM CDT) Case Report Dermatopathology Report Case: [id number] Authorizing Provider: Ana Aguilar MD Collected: 11/27/2023 08:33 AM Ordering Location: [facility] - Received: 11/27/2023 12:15 PM DermPath Lab Pathologist: Bettye Avendano MD Specimen: Skin, left neck 12:19 PM CDT DERMATOPATHOLOGY LABORATORY Final Diagnosis Specimen A. SKIN, left neck: BASAL CELL CARCINOMA, NODULAR TYPE (C44.41) 12:19 PM CDT DERMATOPATHOLOGY LABORATORY Clinical History [place] Papule, R/O BCC, R/O SCC 12:19 PM [...] characteristic determined by the Dermatopathology Laboratory at [facility], directed by Dr. Adele Velazco. These tests need not be, and therefore are not, approved by the [place] Food and Drug Administration. The tests are used for clinical purposes. Billing Codes Specimen Charges Stain Charges [id number] 1 4 12:19 PM CDT DERMATOPATHOLOGY LABORATORY Embedded Images 12:19 PM CDT DERMATOPATHOLOGY LABORATORY Pathology/Cytolo gy TISSUE SPECIMEN FROM SKIN / Unknown 11/27/2023 8:33 AM CDT 11/27/2023 12:15 PM CDT Ana Aguilar MD LAB - PATHOLOGY/CYTO LOGY ORDERABLES DERMATOPATHOLOGY LABORATORY [facility] - Department of Dermatology [facility] Medicine [address] [place] [address], [address]rd [place] [address], [facility] [phone] documented in this encounter Visit Diagnoses Not on filedocumented in this encounter Care Teams Chemical Production Technician Relationship Specialty Start Date End Date Juan Wick MD [address] [place] [address] PCP - General 11/20/17 documented as of this encounter
[2024-06-10] MEDS: LACTATED RINGERS 1,000 ML 30 ML IV CONT ×3 (10:30→14:36)
[2024-06-10] MEDS: ACETAMINOPHEN 500 MG TABLET 1000 MG PO (11:31)
[2024-06-10] MEDS: KETOROLAC 15 MG/ML VIAL (*BKC) IV PUSH (11:31)
[2024-06-10] MEDS: BUPIVACAINE/EPINEPHRINE 0.5% 30 ML VIAL INFILTRATE (11:38)
--- NOTE | 2024-06-10 11:51 | WPDHPUPDATE1 ---
History and Physical Update Update Date/Time: 06/10/24 11:51 History and Physical has been reviewed, including an updated exam of the patient. There are NO changes in the patient's condition. Risks, benefits, and alternatives have been discussed and questions answered. Patient agrees to proceed with procedure.
--- NOTE | 2024-06-10 11:52 | PM.IMHP ---
H&P: HPI History of Present Illness Date/Time: 06/10/24 11:52 Chief Complaint: incarcerated [facility] Narrative: [facility]. He reports a 3 to 4 year history of left inguinal bulging with gradual increase in size over years. He denies associated pain, but as noticed recently that when urinating, he has to reduce the hernia to completely empty his bladder. No constipation, nausea, vomiting, or abdominal distension. Review of Systems Review of Systems: All systems reviewed & are unremarkable except as noted in HPI and below PMFSH Past Medical History Medical History URI, acute Poison esau dermatitis Neck pain Effusion of left knee Colon cancer screening Daytime somnolence Essential (primary) hypertension Onychomycosis of toenail Vitamin D deficiency Dyslipidemia Cervical radicular pain Diverticula, colon Adenomatous colon polyp Obesity Surgical History Surgical History History of umbilical hernia repair with mesh 10-15 years ago H/O melanoma excision (~2021) left anterior lower leg History of fusion of cervical spine (~07/2006) C6-7 diskectomy Hx of colonoscopy Social History Social History Smoking status: Never smoker Second hand tobacco smoke exposure: No Alcohol intake: current Substance use type: does not use Lack of Transportation: No Lack of Food: Never True Current Housing: I Have Housing Concerned About Future Housing: No Difficulty Paying Gas/Electric Bills: No Difficulty Paying for Meds: No Currently Unemployed: No Education: High School Diploma/GED Difficulty w/ Childcare or Family Care: No Living arrangements: with family Additional living arrangements comments: lives with Gender identity (if verbalized by the patient): Male Sexual Orientation (if Verbalized by the Patient): Straight or Heterosexual Spiritual care concerns: No Meds Home Medications and Allergies Home Medications ?Medication ?Instructions ?Recorded ?Confirmed ?Type cholecalciferol (vitamin D3) 50 50 mcg PO DAILY #1 cap 07/11/22 06/10/24 Rx mcg (2,000 unit) capsule losartan 50 mg tablet 50 mg PO DAILY #90 tabs 10/18/24 02/20/25 Rx atorvastatin 10 mg tablet (Lipitor) 10 mg PO QHS #90 tabs 02/09/24 06/10/24 Rx Allergies Allergy/AdvReac Type Severity Reaction Status Date / Time omeprazole Allergy Unknown Rash Verified 06/10/24 11:29 Vital Signs Vital Signs - 24 hr 06/10/24 11:36 Temperature 36.6 C Pulse Rate 61 Respiratory Rate 16 Blood Pressure 172/72 H Pulse Oximetry 99 Oxygen Delivery Room Air Exam Const: General: cooperative, comfortable, no acute distress and obese Resp: Auscultation: clear to auscultation bilaterally Cardio: Rate: regular rate Rhythm: regular rhythm GI: Inspection: normal to inspection, non-distended and obesity GI Palp: No abdominal tenderness, Yes Soft to palpation and Yes Hernia present Other: large LIH unable to completely reduce, no RIH Assessment and Plan Assessment and plan (1) Incarcerated left inguinal hernia: Code(s): K40.30 - Unilateral inguinal hernia, with obstruction, without gangrene, not specified as recurrent Status: Acute Assessment and Plan: will setup for robotic assisted repair c mesh
--- NOTE | 2024-06-10 11:55 | WPDANESEPPF ---
Anes - Initial Pre Proc Eval Procedure: Operation Date: 06/10/24 12:00 Proposed Procedures p Robotic Assisted Incarcerated Left Inguinal Hernia Repair with Mesh - Funmilayo Silver MD Date/Time: 06/10/24 11:55 Surgeon: Funmilayo Silver MD Pre Op Diagnosis: incarcerated left inguinal hernia Patient Data Age: 64 Gender: M Height: 1.83 m Weight: 105.1 kg Last Vital Signs Temp 97.8 F 06/10/24 11:36 Pulse 61 06/10/24 11:36 Resp 16 06/10/24 11:36 BP 172/72 H 06/10/24 11:36 Pulse Ox 99 06/10/24 11:36 O2 Del Method Room Air 06/10/24 11:36 Allergies Allergy/AdvReac Type Severity Reaction Status Date / Time omeprazole Allergy Unknown Rash Verified 06/10/24 11:29 Home Medications ?Medication ?Instructions ?Recorded ?Confirmed ?Type cholecalciferol (vitamin D3) 50 50 mcg PO DAILY #1 cap 07/11/22 06/10/24 Rx mcg (2,000 unit) capsule losartan 50 mg tablet 50 mg PO DAILY #90 tabs 02/06/24 06/10/24 Rx atorvastatin 10 mg tablet (Lipitor) 10 mg PO QHS #90 tabs 02/09/24 06/10/24 Rx Patient hx anesthesia problems: none Family hx anesthesia problems: none Results Review: All pre-operative results and documents have been reviewed as part of the pre-operative evaluation. [facility] Past Medical History Medical History URI, acute Poison esau dermatitis Neck pain Effusion of left knee Colon cancer screening Daytime somnolence Essential (primary) hypertension Onychomycosis of toenail Vitamin D deficiency Dyslipidemia Cervical radicular pain Diverticula, colon Adenomatous colon polyp Obesity Surgical History Surgical History History of umbilical hernia repair with mesh 10-15 years ago H/O melanoma excision (~2021) left anterior lower leg History of fusion of cervical spine (~07/2006) C6-7 diskectomy Hx of colonoscopy Social History Social History Smoking status: Never smoker Second hand tobacco smoke exposure: No Alcohol intake: current Substance use type: does not use Lack of Transportation: No Lack of Food: Never True Current Housing: I Have Housing Concerned About Future Housing: No Difficulty Paying Gas/Electric Bills: No Difficulty Paying for Meds: No Currently Unemployed: No Education: High School Diploma/GED Difficulty w/ Childcare or Family Care: No Living arrangements: with family Additional living arrangements comments: lives with Gender identity (if verbalized by the patient): Male Sexual Orientation (if Verbalized by the Patient): Straight or Heterosexual Spiritual care concerns: No Anes - Eval Final PreProcedure Day of Procedure 06/10/24 11:55 Patient weight: obese Lungs: normal air movement Airway: Mallampati scale class II Neurological: alert and oriented Last oral intake: >/= 8 hours ASA classification: II Emergent: no Anesthetic plan: proceed Anesthesia type and monitoring: general ETT and standard monitoring Results Review: All pre-operative results and documents have been reviewed as part of the pre-operative evaluation. HTN, hyperlipidemia. Informed Consent: The patient's anesthetic plan and its attendant risks and benefits were discussed with the patient/family/POA. Questions were solicited and answers provided to the satisfaction of the patient/family/POA.
[2024-06-10] MEDS: ceFAZolin 2 GM/D5W 50 ML 2 GM/50 ML BAG IVPB (12:04)
--- NOTE | 2024-06-10 13:48 | W.PM.PROC2 ---
Procedure Note - Detailed Date of Procedure 06/10/24 Pre-op Diagnosis incarcerated left inguinal hernia Post-op Diagnosis Same Procedure Performed robotic assisted left inguinal hernia repair with mesh Surgeon Funmilayo Silver MD Anesthesia General Indications 63-year-old male with longstanding left inguinal hernia that has progressively worsened over time. Patient noted difficulty voiding secondary to large hernia. Findings Large incarcerated left direct inguinal hernia with noted bladder incarceration, small indirect defect Description of Procedure Patient was brought into the operating room and placed in the supine position. After adequate induction of general anesthesia, the patient was prepped and draped in normal sterile fashion. A time-out was then done to verify the patient's identity, as well as the procedure being performed. I began by making a 8 mm incision in the supraumbilical region, a Veress needle was then placed into the peritoneal cavity. CO2 gas was then insufflated and after adequate pneumoperitoneum was achieved, the Veress needle was removed. I then placed an 8 mm trocar through this incision. I then placed the endoscope through this trocar site and under direct visualization placed 2 further 8 mm ports in the right and left mid abdomen. The [employer] robot was then docked to the 3 trocar sites. I then scrubbed out and went to the robotic console. Upon examining the pelvis, it was noted that the patient had a large left inguinal hernia. The right side was examined and no hernia defect was noted. There was noted to be some adhesions to the left lower quadrant that were taken down with the scissors. I began by making a preperitoneal flap approximately 6 cm superior to the defect. This flap was carried medially past the umbilical ligaments and laterally to the transversalis. I then began dissection of my medial compartment taking this down to the pubic tubercle. I noted a large incarcerated left direct hernia. Using very careful reduction, I was able to reduce this incarcerated hernia. The incarcerated contents were noted to include some portions of the bladder. I then began the lateral dissection taking this down to the transversalis fascia. Once these compartments were achieved, I began dissection around the cord structures. A smaller sized indirect hernia was noted at this point. Using careful dissection, was able to reduce indirect hernia sac off the cord structures. Once this was adequately done, I went ahead and placed a large piece of 3D Max mesh into the abdominal cavity. The mesh was carefully positioned, centering the center of the mesh over the direct defect. Once this was done, was very satisfied with our repair. Using 3-0 Vicryl sutures, I tacked the mesh medially to Tyree's ligament. Two lateral sutures were placed from the mesh to the transversalis fascia. I then closed the peritoneal flap with a running 2.0 V Lock suture. The abdomen was then desufflated, and all ports were removed. All incisions were then closed with the 4.0 monocryl suture. Dermabond was placed on each wound. The patient tolerated the procedure well, was extubated in the operating room postoperatively, and will now be transferred to the recovery room in stable condition. Implants large 3DMax mesh Estimated Blood Loss 10 Drains No Packing No Pathology None sent Complications No immediate complications Condition Stable Disposition PACU [facility] Billing Surgery - Charge Forward: Surgery Billing
--- NOTE | 2024-06-10 17:21 | SUR.PHASEII ---
1700 PATIENT UNABLE TO URINATE. BLADDER SCAN SHOWS 534ML. DR COPPOLA AWARE. STRAIGHT CATH ORDERED. DR KLEIN WITH PATIENT THEN GOING HOME AND FOLLOWING UP IN THE E.D. IF UNABLE TO URINATE AT HOME.
== END 2024-06-10 17:26 | disposition home or self-care (01) ==
PROVIDERS: PCP Family Medicine; Visit Provider Surgery
PROC: 8E0Y4CZ Robotic Assisted Procedure of Lower Extremity, Percutaneous Endoscopic Approach (ICD-10-PCS; CPT 49650; principal; 2024-06-10 12:00)
DX: K40.30 Unilateral inguinal hernia, with obstruction, without gangrene, not specified as recurrent (principal); E66.9 Obesity, unspecified; Z68.31 Body mass index [BMI] 31.0-31.9, adult
CPT/HCPCS: 49650; S2900; A9270; C1781; J0690; J1100; J1885; J2250; J2405; J2704; J3010; J7120

== ENCOUNTER 2024-09-27 09:13 | Outpatient (CLI) | payer BC, SELFPAY ==
--- OUTSIDE RECORDS SUMMARY | 2024-09-27 09:53 | XMS_ITS | Clinical Summary ---
Author Organization [facility] [employer] Address [address] [place] [address] Care Team Providers Care Slat Basket Maker Machine Name Role Phone Juan Wick MD Primary Care Provider [phone] Source Comments [facility],non-owned Affiliates and Associated Physician Practices is amultiple site organization consisting of ambulatory clinics and hospital sitesin [place], [place], [place] and [place]. This disclosure is being madepursuant to the Care Everywhere program and may not contain all information available regarding this patient. Last updated 18.[facility] [employer] Social History Tobacco Use Types Packs/Day Years Used Date Smoking Tobacco: Never Assessed Sex and Gender Information Value Date Recorded Sex Assigned at Not on file Legal Sex Male 12:48 PM CDT Gender Identity Not on file [...] VACCINE ( - 2023-2 5 season) 2023 DEPRESSION SCREENING 04/21/2024 INFLUENZA VACCINE (Season Ended) 2024 Respiratory Syncytial Virus (RSV) Vaccine Pt: or [...] to complete this topic MENINGOCOCCAL (Group B) VACC INE SHARED DECISION-MAKING Aged Out No longer eligibl e based on patient's age to complete this topic MENINGOCOCCAL GROUPS A/C/Y/W VACCINE Aged Out No longer eligible b ased on patient's age to complete this topic Insurance [employer] Care Teams Slat Basket Maker Machine Relationship Specialty Start Date End Date Juan Wick MD [address] [place] [address] PCP - General 11/20/17
--- OUTSIDE RECORDS SUMMARY | 2024-09-27 09:53 | XMS_ITS | Referral Summary ---
Author Organization [facility] Medical Office Building B Address [address] [place] [address] Care Team Providers Care Agriscience Instructor Name Role Phone Светлана Bishop MD Primary [...] Comments Blood Pressure 166/78 05/31/2020 2:34 PM ATLASSIAN ADMINISTRATOR Pulse 63 05/31/2020 2:34 PM ATLASSIAN ADMINISTRATOR Temperature 36.7 C (98 F) 05/31/2020 2:34 PM ATLASSIAN ADMINISTRATOR Respiratory Rate - - Oxygen Saturation - - Inhaled Oxygen Concentration - - Weight 109.8 kg (242 lb) 05/31/2020 2:34 PM ATLASSIAN ADMINISTRATOR Height 182.9 cm (6') 05/31/2020 2:34 PM ATLASSIAN ADMINISTRATOR Body Mass Index 32.82 05/31/2020 2:34 PM ATLASSIAN ADMINISTRATOR Plan of Treatment [place] [address] AN[employer] ACCESS CHOICE [phone] [id number] Care Teams Agriscience Instructor Relationship Specialty Start Date End Date Светлана Bishop MD PCP - General Family Practice 01/14/19
--- OUTSIDE RECORDS SUMMARY | 2024-09-27 09:53 | XMS_ITS | Clinical Summary ---
Author Organization [facility] Address [address] [place] [address] Phone Care Team Providers Care Mining Teacher Name Role Phone Светлана Bishop MD Primary [...] on file Legal Sex Male 1:41 PM STAFF TRAINER Gender Identity Not on file Sexual Orientation Not on file Plan of Treatment Health Maintenance Due Date Last Done Comments Hepatitis C Virus (HCV) Screening 1960 TdaP Immunization 1960 Cologuard 02/24/2010 Immunochemical Fecal Occult Blood 02/24/2010 Pneumococcal Immunization (50+ years) (1 of 1 - PCV) 02/24/2010 Zoster Immunization (1 of 2) 02/24/2010 PSA Discussion 02/24/2015 Colonoscopy 12/29/2021 12/30/2019, 08/0 04/2017, 10/10/2016, Additional history exists Colorectal Cancer Screening 12/29/2021 Influenza Immunization (#1) 2023 SARS-COV-2 Immunization ( - 2023-25 season) 2023 Respiratory Syncytial Virus (RSV) Immunization (Adult) (1 - 1-dose 75+ series) 02/24/2035 Hepatitis B Immunization Aged Out No longer [...] Most Recently Relevant to Health Maintenance Insurance [facility] Care Teams Mining Teacher Relationship Specialty Start Date End Date Светлана Bishop MD PCP - General Family Medicine 12/07/19
--- OUTSIDE RECORDS SUMMARY | 2024-09-27 09:53 | XMS_ITS | Encounter Summary ---
Author Organization [facility] Address [address] [place] [address] [place] [address] Care Team Providers Care Senior Human Resources Representative Name Role Phone Juan Wick MD Primary Care Provider [phone] Encounter Details Date Type Department Care Team (Late st Contact Info) Description 06/17/2024 Lab Requisition [facility] - DermPath Lab [address] [facility] [place], [place] [phone] Ana Aguilar MD [address] [facility] 3 [place] [address] Social History Tobacco Use Types Packs/Day Years [...] Priority Date/Time Associated Diagnosis Comments DERMATOPATHOLOGY Routine 06/17/2024 10:1 6 AM FLOUR BROKER documented in this encounter Results * DERMATOPATHOLOGY (06/17/2024 10:16 AM FLOUR BROKER) Case Report Dermatopathology Report Case: [id number] Authorizing Provider: Ana Aguilar MD Collected: 06/17/2024 10:16 AM Ordering Location: [facility] - Received: 06/21/2024 09:05 AM DermPath Lab Pathologist: Angelica Velazco MD Specimens: A) - Skin, left upper lip B) - Skin, chest 4:15 PM [facility] DERMATOPATHOLOGY LABORATORY Final Diagnosis Specimen A. SKIN, left upper lip: GRANULOMATOUS DERMATITIS CONSISTENT WITH A RUPTURED CYST OR HAIR FOLLICLE (L72.0) Specimen B. SKIN, chest: BASAL CELL CARCINOMA, NODULAR TYPE (C44.519) 4:15 PM [facility] DERMATOPATHOLOGY LABORATORY at 1615 [facility]OKER Clinical History A: Favor Cyst B: R/O BCC 4:15 PM [facility] DERMATOPATHOLOGY LABORATORY Gross Description Specimen A: Received is one formalin filled container labeled with the patient's name and designated left upper lip. The specimen consists of a shave biopsy measuring 3x3x1 mm. Jar 0. Specimen B: Received is one formalin filled container labeled with the patient's name and designated chest. The specimen consists of a shave biopsy measuring 4x4x1 mm. Jar 0. 4:15 PM [facility] DERMATOPATHOLOGY LABORATORY Microscopic Description Specimen A. SKIN, left upper lip: Neutrophils, histiocytes, and multinucleated giant cells are present within the dermis. Specimen B. SKIN, chest: Within the dermis there are aggregates of basaloid cells with a high nuclear to cytoplasmic ratio and peripheral palisading. 4:15 PM [facility] DERMATOPATHOLOGY LABORATORY Disclaimer An external and internal [...] purposes. Billing Codes Specimen Charges Stain Charges 67450 21191 1 1 4:15 PM [facility] DERMATOPATHOLOGY LABORATORY Embedded Images 4:15 PM [facility] DERMATOPATHOLOGY LABORATORY Pathology/Cytology TISSUE SPECIMEN FROM SKIN / Unknown 06/17/2024 10:16 AM FLOUR BROKER 06/21/2024 9:05 AM FL[facility] BROKER Miscellaneous samples (specimen) TISSUE SPECIMEN FROM SKIN / Unknown 06/17/2024 10:16 AM FLOUR BROKER 06/21/2024 9:05 AM FLOUR BROKER us Ana Aguilar MD LAB - PATHOLOGY/CYTOLOGY ORD ERABLES Final Result DERMATOPATHOLOGY LABORATORY [facility] - Department of Dermatology [facility] Medicine [address] [place] [address], [address] [phone] documented in this encounter Visit Diagnoses Not on filedocumented in this encounter Care Teams Senior Human Resources Representative Relationship Specialty Start Date End Date Juan Wick MD [address] [place] [address] PCP - General 11/20/17 documented as of this encounter
--- OUTSIDE RECORDS SUMMARY | 2024-09-27 09:53 | XMS_ITS | Clinical Summary ---
Author Organization [facility] Medical Office Building B Address [address] [place] [address] Care Team Providers Care High Pressure Kettle Operator Name Role Phone Светлана Bishop MD [...] Comments Blood Pressure 166/78 05/31/2020 2:34 PM PLANNING SPECIALIST Pulse 63 05/31/2020 2:34 PM PLANNING SPECIALIST Temperature 36.7 C (98 F) 05/31/2020 2:34 PM PLANNING SPECIALIST Respiratory Rate - - Oxygen Saturation - - Inhaled Oxygen Concentration - - Weight 109.8 kg (242 lb) 05/31/2020 2:34 PM PLANNING SPECIALIST Height 182.9 cm (6') 05/31/2020 2:34 PM PLANNING SPECIALIST Body Mass Index 32.82 05/31/2020 2:34 PM PLANNING SPECIALIST Plan of Treatment Not on file Insurance [employer] ACCESS CHOICE Care Teams High Pressure Kettle Operator Relationship Specialty Start Date End Date Светлана Bishop MD PCP - General Family Practice 01/14/19
--- OUTSIDE RECORDS SUMMARY | 2024-09-27 09:53 | XMS_ITS | Encounter Summary ---
Author Organization [facility] Address [address] [facility] [place] [address] Care Team Providers Care Take Down Sorter Name Role Phone Juan Wick MD Primary Care Provider [phone] Encounter Details Date Type Department Care Team (Late st Contact [facility]) Description 12/15/2023 Lab Requisition [facility] - DermPath Lab [address] [facility], [place] [phone] Ana Aguilar MD [address] [facility] 3 [place] [address] Social History Tobacco Use Types Packs/Day Years [...] AM CDT) Case Report Dermatopathology Report Case: [id number] Authorizing Provider: Ana Aguilar MD Collected: 12/15/2023 08:18 AM Ordering Location: [facility] - Received: 12/15/2023 10:36 AM DermPath Lab Pathologist: Shira Avendano MD Specimen: Skin, left neck 1:01 PM CDT DERMATOPATHOLOGY LABORATORY Final Diagnosis Specimen A. SKIN, left neck: DERMAL SCAR RESIDUAL BASAL CELL CARCINOMA NOT IDENTIFIED (L90.5) 1:01 PM CDT DERMATOPATHOLOGY LABORATORY at 1301 CDT Clinical History BCC BX Proven 1:01 PM T DERMATOPATHOLOGY LABORATORY Gross Description Specimen A: Received is one formalin filled container labeled with the patient's name and designated left neck.The specimen consists of an ellipse measuring 29i43s3 mm and is oriented with the suture/notch [...] and submitted in cassettes 3-5. Jar 0. 1:01 PM T DERMATOPATHOLOGY LABORATORY Microscopic Description Specimen A. SKIN, left neck: There are fibroblasts and collagen bundles oriented parallel to the skin surface. There are elongated blood vessels, some of which are oriented perpendicular to the skin surface. No basal cell carcinoma is identified. 1:01 PM T DERMATOPATHOLOGY LABORATORY Disclaimer An external and internal positive and negative controls are appropriate for the histochemical, immunohistochemical and immunofluorescence stain(s) in this case (if any), except where stated explicitly. The performance characteristics of the stain(s) cited in this report were developed and its performance characteristic determined by the Dermatopathology Laboratory at [facility], directed by Dr. Adele Velazco. These tests need not be, and therefore are not, approved by the [place] Food and Drug Administration. The tests are used for clinical purposes. Billing Codes Specimen Charges Stain Charges 42109 1 1:01 PM CDT DERMATOPATHOLOGY LABORATORY Embedded Images 1:01 PM CDT DERMATOPATHOLOGY LABORATORY Pathology/Cytolo gy TISSUE SPECIMEN FROM SKIN / Unknown 12/15/2023 8:18 AM CDT 12/15/2023 10:36 AM CDT us Ana Aguilar MD LAB - PATHOLOGY/CYTOLOGY ORD ERABLES Final Result DERMATOPATHOLOGY LABORATORY [facility] - Department of Dermatology [facility] Medicine [facility] [facility], 3rd Floor [address] [phone] documented in this encounter Visit Diagnoses Not on filedocumented in this encounter Care Teams Take Down Sorter Relationship Specialty Start Date End Date Juan Wick MD [address] [place] [phone] PCP - General 11/20/17 documented as of this encounter
--- OUTSIDE RECORDS SUMMARY | 2024-09-27 09:53 | XMS_ITS | Encounter Summary ---
Author Organization [facility] Address [address] [facility] [place] [address] Care Team Providers Care Director Medical Economics Name Role Phone Juan Wick MD Primary Care Provider [phone] Encounter Details Date Type Department Care Team (Late st Contact [facility]) Description 11/27/2023 Lab Requisition [facility] - DermPath Lab [address] [facility], [place] [phone] Ana Aguilar MD [address] [facility] 3 [place] [address] Social History Tobacco Use Types Packs/Day Years [...] AM CDT) Case Report Dermatopathology Report Case: [id number] Authorizing Provider: Ana Aguilar MD Collected: 11/27/2023 08:33 AM Ordering Location: [facility] - Received: 11/27/2023 12:15 PM DermPath Lab Pathologist: Bettye Avendano MD Specimen: Skin, left neck 12:19 PM CDT DERMATOPATHOLOGY LABORATORY Final Diagnosis Specimen A. SKIN, left neck: BASAL CELL CARCINOMA, NODULAR TYPE (C44.41) 12:19 PM CDT DERMATOPATHOLOGY LABORATORY at 1219 CDT Clinical History Binford Papule, R/O BCC, R/O SCC 12:19 PM [...] characteristic determined by the Dermatopathology Laboratory at [facility], directed by Dr. Adele Velazco. These tests need not be, and therefore are not, approved by the [place] Food and Drug Administration. The tests are used for clinical purposes. Billing Codes Specimen Charges Stain Charges 78177 1 4 12:19 PM CDT DERMATOPATHOLOGY LABORATORY Embedded Images 12:19 PM CDT DERMATOPATHOLOGY LABORATORY Pathology/Cytolo gy TISSUE SPECIMEN FROM SKIN / Unknown 11/27/2023 8:33 AM CDT 11/27/2023 12:15 PM CDT us Ana Aguilar MD LAB - PATHOLOGY/CYTOLOGY ORD ERABLES Final Result DERMATOPATHOLOGY LABORATORY [facility] - Department of Dermatology [facility] Medicine [address] [place] [address], [address] [phone] documented in this encounter Visit Diagnoses Not on filedocumented in this encounter Care Teams Director Medical Economics Relationship Specialty Start Date End Date Juan Wick MD [address] [place] [address] PCP - General 11/20/17 documented as of this encounter
[2024-09-27 13:27] LABS: Basophils Percent Auto 0.3 % (0.2-1.2); Eosinophils Absolute Auto 0.1 K/mm3 (0-0.3); Eosinophils Percent Auto 2.1 % (0-4.4); Hematocrit 49.1 % (42.0-52.0); Immature Granulocyte Absolute 0.01 K/mm3 (0.00-0.031); Immature Granulocyte Percent A 0.1 % (0-0.5); Lymphocytes Absolute Auto 2.24 K/mm3 (0.9-3.2); Lymphocytes Percent Auto 32.8 % (18.3-44.2); Mean Corpuscular HGB Conc 32.6 g/dl (32-36); Mean Corpuscular Hemoglobin 31.6 pg (26-34); Mean Corpuscular Volume 96.8 fl (80-100); Monocytes Absolute Auto 0.5 K/mm3 (0.1-0.6); Monocytes Percent Auto 6.7 % (2.6-8.5); Platelet Count Result 188 k/mm3 (150-375); Red Blood Count 5.07 M/mm3 (4.6-6.20); Red Cell Distribution Width 12.9 % (11.5-14.5); White Blood Count 6.8 K/mm3 (4.5-10.0)
[2024-09-27 13:53] LABS: Vitamin D 25 Hydroxy 46.3 ng/mL
[2024-09-27 14:38] LABS: Hemoglobin A1C 5.3 % (<5.7)
[2024-09-27 16:48] LABS: Alanine Aminotransferase 64 U/L (6-50); Albumin Level 4.4 g/dL (3.5-5.1); Alkaline Phosphatase 84 U/L (38-126); Anion Gap 7 mmol/L (4-12); Aspartate Amino Transferase 65 U/L (17-59); Bilirubin,Total 0.5 mg/dL (0.2-1.3); Blood Urea Nitrogen 19 mg/dL (9-20); Calcium 10.3 mg/dL (8.4-10.2); Carbon Dioxide 27 mmol/L (22-30); Chloride 105 mmol/L (98-107); Cholesterol 155 mg/dL (0-200); Estimated Glomerular Filt Rate > 60; Glucose 96 mg/dL (65-110); HDL Direct 37 mg/dL; Potassium 4.9 mmol/L (3.4-5.0); Sodium 139 mmol/L (137-145); Total Protein 7.2 g/dL (6.3-8.2); Triglycerides 132 mg/dL (<150)
[2024-09-27 17:19] LABS: Prostate Specific Antigen 3.3 ng/mL (< OR = 4.0)
[2024-09-27 17:27] LABS: LDL Cholesterol Direct 77 mg/dL
== END 2024-09-27 09:14 | disposition home or self-care (01) ==
LOC: ANHGOSHLAB 09:14
PROVIDERS: PCP Family Medicine; Visit Provider Family Medicine
DX: E78.5 Hyperlipidemia, unspecified (principal); I10 Essential (primary) hypertension; E55.9 Vitamin D deficiency, unspecified; E53.8 Deficiency of other specified B group vitamins; R73.9 Hyperglycemia, unspecified; Z12.5 Encounter for screening for malignant neoplasm of prostate
CPT/HCPCS: 36415; 80053; 80061; 82306; 82607; 83036; 84153; 84443; 85025; G0103

== ENCOUNTER 2025-03-30 11:54 | Outpatient (CLI) | payer OTHER, SELFPAY ==
[2025-03-30 13:33] LABS: Alanine Aminotransferase 46 U/L (6-50); Albumin Level 4.5 g/dL (3.5-5.1); Alkaline Phosphatase 86 U/L (38-126); Anion Gap 5 mmol/L (4-12); Aspartate Amino Transferase 46 U/L (17-59); Bilirubin,Total 0.8 mg/dL (0.2-1.3); Blood Urea Nitrogen 16 mg/dL (9-20); Calcium 10.2 mg/dL (8.4-10.2); Carbon Dioxide 29 mmol/L (22-30); Chloride 104 mmol/L (98-107); Estimated Glomerular Filt Rate > 60; Glucose 92 mg/dL (65-110); Potassium 4.9 mmol/L (3.4-5.0); Sodium 138 mmol/L (137-145); Total Protein 7.3 g/dL (6.3-8.2)
== END 2025-03-30 11:55 | disposition home or self-care (01) ==
LOC: ANHGOSHLAB 11:56
PROVIDERS: PCP Family Medicine; Visit Provider Family Medicine
DX: I10 Essential (primary) hypertension (principal)
CPT/HCPCS: 36415; 80053